=== PATIENT | female | born 1965 | race Caucasian/White ===

== ENCOUNTER → 2016-06-22 | Outpatient (REF) | payer OTHER | LOC: M LAB REF 16:44 | PROVIDERS: ATTEND Physician Assistant | DX: N39.0 Urinary tract infection, site not specified (principal) ==

== ENCOUNTER → 2018-07-03 | Outpatient (CLI) | payer OTHER ==
[2018-07-03 09:44] LABS: HEMATOCRIT 43.7 % (36.0-47.0); HEMOGLOBIN 15.1 g/dl (12.0-15.5); MEAN CORPUSCULAR HEMOGLOBIN 33.3 pg (27.0-33.0); MEAN CORPUSCULAR HGB CONC 34.6 g/dl (32.0-36.5); MEAN CORPUSCULAR VOLUME 96.3 fl (80.0-96.0); PLATELET COUNT, AUTOMATED 351 10^3/uL (150-450); RED BLOOD COUNT 4.54 10^6/uL (4.00-5.40); WHITE BLOOD COUNT 6.4 10^3/uL (4.0-10.0)
[2018-07-03 10:21] LABS: ALBUMIN 3.8 GM/DL (3.2-5.2); ALT/SGPT 31 U/L (12-78); BILIRUBIN,TOTAL 0.4 MG/DL (0.2-1.0); BLOOD UREA NITROGEN 8 MG/DL (7-18); CARBON DIOXIDE LEVEL 29 MEQ/L (21-32); CHLORIDE LEVEL 105 MEQ/L (98-107); CHOLESTEROL LEVEL 221 MG/DL (<200); CHOLESTEROL RISK RATIO 3.507 (<5); CREATININE FOR GFR 0.58 MG/DL (0.55-1.30); GLOMERULAR FILTRATION RATE > 60.0 (>51); GLUCOSE, FASTING 71 MG/DL (70-100); HDL CHOLESTEROL 63 MG/DL (>40); LDL CHOLESTEROL 95 MG/DL (<100); NON-HDL-C 158 MG/DL; POTASSIUM SERUM 3.9 MEQ/L (3.5-5.1); SODIUM LEVEL 140 MEQ/L (136-145); TOTAL PROTEIN 7.4 GM/DL (6.4-8.2); TRIGLYCERIDES LEVEL 315 MG/DL (<150)
[2018-07-03 10:22] LABS: TOTAL 25(OH) VITAMIN D 10.4 NG/ML (30.0-100.0)
[2018-07-03 10:38] LABS: HEMOGLOBIN A1c 5.1 %
== END ==
LOC: M LAB 09:06
PROVIDERS: ATTEND Family Medicine
DX: D64.9 Anemia, unspecified (principal); R53.83 Other fatigue; E03.9 Hypothyroidism, unspecified

== ENCOUNTER → 2018-07-06 | Outpatient (CLI) | payer OTHER ==
--- NOTE | 2018-07-07 13:35 | ECGEPIP ---
Stationary ECG Study [facility] Test Date: 2018-07-06 Pat Name: JAVY RIZVI Department: Room: - Gender: F Python Engineer: JANET : 1965 Requested By: Geraldine Medina Order Number: [id number] Reading MD: Avi Child Measurements Intervals [place] Rate: 68 P: 50 LA: 154 QRS: 53 QRSD: 92 T: 33 QT: 378 QTc: 402 Interpretive Statements Normal sinus rhythm Normal EKG Comparison tracing not on file Electronically Signed On 07-07-2018 13:34:57 EDT by Avi Child
== END ==
LOC: M EKG 13:21
PROVIDERS: ATTEND Family Medicine
DX: R00.2 Palpitations (principal)

== ENCOUNTER → 2018-11-12 | Outpatient (REF) | payer OTHER | LOC: M LAB REF 16:19 | PROVIDERS: ATTEND Physician Assistant | DX: N39.0 Urinary tract infection, site not specified (principal) ==

== ENCOUNTER → 2018-11-23 | Outpatient (REF) | payer OTHER | LOC: M LAB REF 09:08 | PROVIDERS: ATTEND Nurse Practitioner Family | DX: N39.0 Urinary tract infection, site not specified (principal) ==

== ENCOUNTER → 2018-12-02 | Outpatient (CLI) | payer OTHER ==
--- NOTE | 2018-12-02 14:45 | REP ---
HISTORY: Pain after trauma. COMPARISON: None. There is a distal clavicular fracture. The glenohumeral relationship is within normal limits. Electronically Signed by Tomas Wei DO 12/02/2018 04:02 P
--- NOTE | 2018-12-02 14:46 | REP ---
HISTORY: Pain after trauma. There is a fracture of the distal clavicle. Electronically Signed by Tomas Wei DO 12/02/2018 04:02 P
== END ==
LOC: M WUC 13:44
PROVIDERS: ATTEND Physician Assistant
DX: S40.012A Contusion of left shoulder, initial encounter (principal)

== ENCOUNTER → 2019-07-03 | Outpatient (REF) | payer OTHER ==
[2019-07-03 16:18] LABS: AMPHETAMINES URINE REFLEX NEGATIVE (NEGATIVE); BARBITURATES URINE REFLEX NEGATIVE (NEGATIVE); CANNABINOIDS URINE REFLEX NEGATIVE (NEGATIVE); COCAINE METABOLITE URINE REFLE NEGATIVE (NEGATIVE); METHADONE URINE REFLEX NEGATIVE (NEGATIVE); OPIATES URINE REFLEX NEGATIVE (NEGATIVE); PHENCYCLIDINE URINE REFLEX NEGATIVE (NEGATIVE)
[2019-07-03 16:31] LABS: BENZODIAZEPINES URINE REFLEX PENDING CONFIRMATION (NEGATIVE)
== END ==
LOC: M LABDRAW1 09:29
PROVIDERS: ATTEND Family Medicine
DX: Z79.899 Other long term (current) drug therapy (principal)
CPT/HCPCS: 36415; 80307; G0480

== ENCOUNTER → 2019-08-26 | Outpatient (CLI) | payer OTHER ==
[~2019-08-26] MED LIST: AMLO5TAB6 PO; BIOT1TAB PO; LOSA50TA88 PO; METO1TAB32 PO; OMEP10CASR PO; SIMV20TA22 PO; XANA0.5T3 PO
--- NOTE | 2019-08-26 14:48 | REP ---
DIGITAL DIAGNOSTIC BILATERAL MAMMOGRAPHY WITH CAD, 3D TOMOGRAPHY, AND FOCUSED RIGHT BREAST SONOGRAPHY: HISTORY: Palpable lump in the superomedial quadrant of the right breast with some pain. Prior lumpectomies superior medial quadrant of each breast. Both benign. No available prior mammography. MAMMOGRAPHIC FINDINGS: Breast parenchyma is heterogeneously dense in a pattern which may inhibit the sensitivity of mammography. The Volpara volumetric breast density category is: C. A skin marker is affixed to the skin at the site of the palpable lump projecting medially in the right breast at approximately 3-o'clock position. There is no evidence of mass adjacent to or in the region of the skin marker in the right breast. However, there is a spiculated mass lesion projecting in the upper outer quadrant of the right breast not related to the palpable abnormality. This measures approximately 1.9 cm in greatest diameter. There are radiating spiculations. No contour deformity or skin thickening is seen. There are microcalcifications within the lesion which is quite suspicious. The left breast shows heterogeneous breast tissue and some scattered calcifications. No suspicious abnormalities noted on the left mammographically. SONOGRAPHIC FINDINGS: The right breast is examined sonographically at the site of the palpable lump at 3-o'clock position as well as in the upper outer quadrant. Heterogeneous fibroglandular background echotexture is seen in the 3-o'clock position. No suspicious sonographic finding is seen at the site of the palpable lump. In the upper outer quadrant of the right breast, in the 10-o'clock position, there is a spiculated lesion with isoechoic and hypoechoic components and angular margins corresponding to the mammographic opacity. Radiating fibrotic structures are seen. No skin thickening is seen. Sonographically, the lesion measures 1.8 x 1.6 x 1.3 cm. IMPRESSION: BIRADS 5: BI-RADS/ACR category 5 mammogram. Highly Suggestive of Malignancy - appropriate action should be taken. BIRADS category 5 highly suspicious right breast imaging with a spiculated mass in the upper outer quadrant seen both mammographically and sonographically. Recommend ultrasound guided needle biopsy of the upper outer quadrant lesion in the right breast, marker clip placement, and postbiopsy mammography. This mammogram was interpreted with the aid of an FDA-approved computer-aided detection system. The patient states she had a clinical breast exam in August 2019. The patient letter being requested is M4. Dense This patient's estimated [facility] lifetime risk assessment for breast cancer is 22.0 %. Enhanced screening in the form of annual bilateral breast MRI scanning may be warranted.
== END ==
LOC: M WHC 12:27
PROVIDERS: ATTEND Nurse Practitioner Women's Health
DX: R92.8 Other abnormal and inconclusive findings on diagnostic imaging of breast (principal); Z98.890 Other specified postprocedural states
CPT/HCPCS: 76642; 77066; G0279

== ENCOUNTER → 2019-08-28 | Outpatient (CLI) | payer OTHER ==
[2019-08-28 12:50] VITALS: BP 130/72
--- NOTE | 2019-08-28 15:26 | REP ---
DIGITAL DIAGNOSTIC UNILATERAL RIGHT BREAST MAMMOGRAM WITH CAD: Two views. HISTORY: Marker clip placement views. Comparison mammography August 26, 2019. FINDINGS: True MLO and craniocaudad views of the right breast are obtained. These demonstrate the previously noted spiculated mass lesion projecting in the upper outer quadrant. The needle biopsy marker clip is along the posterior margin of the spiculated lesion. IMPRESSION: Marker clip in good position.
--- NOTE | 2019-08-28 15:27 | REP ---
FOCUSED RIGHT BREAST SONOGRAPHY: HISTORY: Sonographic guidance. Needle biopsy procedure. Comparison sonography August 26, 2019. FINDINGS: Sonographic guidance is provided to Dr. Sinclair who performed ultrasound-guided needle biopsy procedure right breast.
--- NOTE | 2019-08-28 15:28 | REP ---
FOCUSED LEFT BREAST SONOGRAPHY: HISTORY: Left breast mass 6-o'clock position, 1.5 cm from the nipple. FINDINGS: Scanning at the area of the palpable lump in the left breast at 6-o'clock position demonstrates a well defined hypoechoic to anechoic spherical lesion measuring 0.7 x 0.8 x 0.6 cm. It has a well defined back wall enhanced through transmission consistent with a complex cyst. There is no evidence of internal Doppler flow. IMPRESSION: Findings most compatible with slightly complex cyst 6-o'clock position left breast. BIRADS category 2 benign findings.
--- NOTE | 2019-08-28 15:29 | REP ---
SOFT TISSUE SONOGRAPHY RIGHT AXILLA: HISTORY: Tender palpable lymph node right axilla. Rule out adenopathy. SONOGRAPHIC FINDINGS: Scanning through the right axilla demonstrates two identifiable sonographically normal-appearing lymph nodes. These measure as follows: 1.0 x 0.9 x 1.2 cm and 0.5 x 0.4 x 0.7 cm. No sonographic evidence of adenopathy. IMPRESSION: BIRADS category 2 benign findings right axilla.
--- NOTE | 2019-09-01 21:10 | ROOPDOC ---
[facility] Report Of Operation Report of Operation DATE OF PROCEDURE: 08/28/19 PREPROCEDURE DIAGNOSES: Right breast mass. POSTPROCEDURE DIAGNOSES: Right breast mass. PROCEDURE: Ultrasound-guided biopsy of right breast mass and clip placement. SURGEON: Rosalba Sharma INSPECTOR BALL POINTS: ANESTHESIA: Local anesthetic was used. ESTIMATED BLOOD LOSS: Approximately 1 mL. COMPLICATIONS: None. REMARKS: Postbiopsy clip is seen on mammographically in expected location. DESCRIPTION OF PROCEDURE: Lidocaine 1% LOT [id number] Expiration 09/2022 Sodium Bicarbonate 8.4% LOT [id number] Expiration 09/2020 Hydromark clip LOT [id number] Expiration 02/2022 SHAPE 4 Bx device: BARD [id number] x10 cm LOT [id number] Expiration 05/2022 Informed consent was obtained. The most common risk and possible complications including bleeding, hematoma, bruising, infection, injury to surrounding structures were explained to the patient and she expressed understanding. Patient was placed on the bed in the supine position. Appropriate time out was done stating patients name, date of , and the procedure to be performed. The right breast was prepped and draped in the usual fashion. The ultrasound was used to confirm the location of the lesion in the right breast at 10:00 3 centimeters from the nipple. Plain Lidocaine 1% and 8.4% sodium bicarbonate 10:1 mix was used to anesthetize the skin, the biopsy site and tissues along the anticipated biopsy tract. Small skin incision was made with blade number 11. BARD Marquee 14G cannula with introducer ([id number]) was inserted through the incision and advanced under the u ltrasound guidance to position immediately adjacent to the lesion. Next, the introducer was removed and BARD Marquee 14G biopsy device was places in the cannula. Pre-biopsy imaging, and post-biopsy imaging were captured. Five good core biopsies were taken at various levels of the lesion. Specimen was placed in formaldehyde, labeled with appropriate biopsy site and patients name, and sent to pathology for evaluation. Next, the biopsy device was withdrawn and a clip introducer was inserted into the biopsy site via the cannula. The Hydromark clip was deployed under direct vision. Post-clip placement image was captured. Manual pressure over the biopsy cavity and tract was held after the clip introducer was withdrawn. No bleeding was noted upon removal of the pressure. Post-biopsy mammogram of the right breast was obtained and showed clip in expected position. Postprocedural dressing was placed. Patient tolerated procedure well. Discharge instructions were discussed with the patient and she expressed understanding. ROSALBA SHARMA DO September 01, 2019 21:03
== END ==
LOC: M WHCPRO 11:34
PROVIDERS: ATTEND Surgery
DX: C50.411 Malignant neoplasm of upper-outer quadrant of right female breast (principal)

== ENCOUNTER → 2019-08-28 | Outpatient (CLI) | payer OTHER | LOC: M PLALAB 12:59 | PROVIDERS: ATTEND Surgery | DX: Z80.3 Family history of malignant neoplasm of breast (principal) ==

== ENCOUNTER → 2019-09-06 | Outpatient (CLI) | payer OTHER ==
[~2019-09-06] MED LIST changes: +PROHANCE 279.3MG/ML 15ML VIAL As Ordered ONE; +ULTR50TA8 PO; +VITA50005 PO
--- NOTE | 2019-09-07 07:44 | REP ---
BILATERAL BREAST MRI STUDY WITHOUT AND WITH IV GADOLINIUM: HISTORY: Malignant neoplasm right breast. Comparison mammography and sonography August 26, 2019. Comparison breast imaging August 28, 2019. The patient status post needle biopsy right breast on August 28, 2019 positive for invasive ductal carcinoma. TECHNIQUE: Three Stacy MRI imaging was performed with a dedicated breast coil. Axial, coronal, and sagittal T1 and T2-weighted scans were obtained with and without fat saturation in the usual fashion. The study includes dynamically acquired post gadolinium enhanced imaging subtraction imaging. Maximal intensity projection and multiplanar re-formation imaging is included as well. The study was interpreted with the aid of [employer] ImageD, an FDA approved computer-aided detection (CAD) software program, on a dedicated breast MRI work station. The gadolinium enhancement dose is 11 mL of intravenous ProHance. FINDINGS: There is a moderate to marked amount of fibroglandular tissue bilaterally corresponding with the dense parenchyma seen mammographically. There is mild to moderate background parenchymal enhancement. There are multiple subcentimeter cysts in the left breast. There are two or three subcentimeter cysts in the inferomedial quadrant of the right breast. Multiple tiny subcentimeter cysts are noted in the left and right lobe of the liver incidentally. There is no evidence of axillary lymphadenopathy on either side. No internal mammary lymphadenopathy is seen. The biopsy-proven carcinoma is seen in the right breast laterally, just above the plane of the nipple at approximately 9-10-o'clock position. Its MR dimensions are 1.4 x 1.7 x 1.5 cm. It has spiculated margins with somewhat elongate spiculations extending from the mass circumferentially. It is 3.5 cm from the nipple and 1.4 cm from the nearest overlying skin laterally. No skin changes are appreciated. A HydroMARK biopsy marker clip device is seen through the superior and posterior margin of the lesion. The lesion demonstrates somewhat heterogeneous enhancement with predominately washout kinetics. No other suspicious area of morphologic abnormality or contrast enhancement is seen in the right breast. Normal background parenchymal enhancement is seen in the left breast. No suspicious morphologic abnormality or area of contrast enhancement is seen in the left breast. IMPRESSION: BIRADS category 6 known right breast malignancy. 1.7 centimeter spiculated mass in the right breast containing the needle biopsy marker clip. No other suspicious abnormality. Subcentimeter cysts are visible bilaterally. There are several tiny liver cyst noted incidentally. Electronically Signed by Justin Roberts MD 09/09/2019 09:17 A
== END ==
LOC: M RAD 14:35
PROVIDERS: ATTEND Surgery
DX: C50.911 Malignant neoplasm of unspecified site of right female breast (principal); K76.9 Liver disease, unspecified
CPT/HCPCS: A9576; C8908

== ENCOUNTER → 2019-09-07 | Outpatient (CLI) | payer OTHER ==
[~2019-09-07] MED LIST changes: -PROHANCE 279.3MG/ML 15ML VIAL As Ordered ONE
[2019-09-07 09:57] LABS: HEMATOCRIT 37.6 % (36.0-47.0); HEMOGLOBIN 12.7 g/dl (12.0-15.5); MEAN CORPUSCULAR HEMOGLOBIN 31.7 pg (27.0-33.0); MEAN CORPUSCULAR HGB CONC 33.8 g/dl (32.0-36.5); MEAN CORPUSCULAR VOLUME 93.8 fl (80.0-96.0); PLATELET COUNT, AUTOMATED 299 10^3/uL (150-450); RED BLOOD COUNT 4.01 10^6/uL (4.00-5.40); WHITE BLOOD COUNT 4.2 10^3/uL (4.0-10.0)
[2019-09-07 10:11] LABS: INR 1.11
--- NOTE | 2019-09-07 10:14 | REP ---
Clinical: Preoperative assessment . Comparison: None . Technique: PA and lateral. Findings: The mediastinum and cardiac silhouette are normal. The lung baird are clear and without acute consolidation, effusion, or pneumothorax. The skeletal structures are intact and normal. Impression: 1. No acute cardiopulmonary process. Electronically Signed by Gilberto Joel MD 09/07/2019 10:05 A
[2019-09-07 10:29] LABS: ALBUMIN 3.9 GM/DL (3.2-5.2); ALT/SGPT 62 U/L (12-78); BILIRUBIN,TOTAL 0.4 MG/DL (0.2-1.0); BLOOD UREA NITROGEN 6 MG/DL (7-18); CALCIUM LEVEL 8.4 MG/DL (8.5-10.1); CARBON DIOXIDE LEVEL 27 MEQ/L (21-32); CHLORIDE LEVEL 101 MEQ/L (98-107); CHOLESTEROL LEVEL 183 MG/DL (<200); CHOLESTEROL RISK RATIO 2.506 (<5); CREATININE FOR GFR 0.56 MG/DL (0.55-1.30); GLOMERULAR FILTRATION RATE > 60.0 (>51); GLUCOSE, FASTING 69 MG/DL (70-100); HDL CHOLESTEROL 73 MG/DL (>40); LDL CHOLESTEROL 64 MG/DL (<100); NON-HDL-C 110 MG/DL; POTASSIUM SERUM 3.9 MEQ/L (3.5-5.1); SODIUM LEVEL 135 MEQ/L (136-145); TOTAL PROTEIN 7.7 GM/DL (6.4-8.2); TRIGLYCERIDES LEVEL 230 MG/DL (<150)
--- NOTE | 2019-09-08 01:01 | ECGEPIP ---
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
== END ==
LOC: M LAB 09:18
PROVIDERS: ATTEND Family Medicine
DX: Z01.818 Encounter for other preprocedural examination (principal); I10 Essential (primary) hypertension

== ENCOUNTER → 2019-09-14 | Outpatient (CLI) | payer OTHER | LOC: M LABSMTC 08:11 | PROVIDERS: ATTEND Anesthesiology | DX: Z01.818 Encounter for other preprocedural examination (principal); Z11.59 Encounter for screening for other viral diseases ==

== ENCOUNTER 2019-09-17 08:01 | Day surgery (SDC) | payer OTHER ==
[~2019-09-17] VITALS: Ht 160 cm; Wt 58.0 kg
[~2019-09-17 08:01] MED LIST changes: -ULTR50TA8 PO
[2019-09-17] MEDS ORDERED: propofoL 200 MG/20 ML VIAL As Ordered ONE (08:37)
[2019-09-17] MEDS ORDERED: LIDOCAINE 2% 100MG/5ML SDV (FOR ANES.) As Ordered ONE (08:37)
[2019-09-17] MEDS ORDERED: SUCCINYLCHOLINE 100 MG/5 ML SYRINGE (J0330) As Ordered ONE (08:37)
[2019-09-17] MEDS ORDERED: fentaNYL 250 MCG/5 ML INJECTION (J3010) As Ordered ONE (08:38)
[2019-09-17] MEDS ORDERED: MIDAZOLAM INJ 2MG/2ML VIAL (J2250 PER 1MG) As Ordered ONE (08:38)
[2019-09-17] MEDS ORDERED: HEPARIN SOD (PORCINE) 5000UNITS/ML VIAL (J1644 PER 1000UNITS) SQ ONE (08:45)
[2019-09-17] MEDS ORDERED: CLINDAMYCIN 900 MG in IV 1 EA IV ONE (08:45)
[2019-09-17] MEDS ORDERED: LR 1,000 ML IV ONE (08:45)
[2019-09-17] MEDS ORDERED: LIDOCAINE 1% SDV 30ML VIAL As Ordered ONE (12:19)
[2019-09-17] MEDS ORDERED: BUPIVACAINE HCL 0.25% 30ML VIAL As Ordered ONE (12:19)
[2019-09-17] MEDS ORDERED: METHYLENE BLUE 0.5% (5MG/ML) 10 ML AMP (PROVAYBLUE)(Q9968 PER 1MG) As Ordered ONE (12:41)
[2019-09-17] MEDS ORDERED: ROCURONIUM BROMIDE 50 MG/5 ML VIAL As Ordered ONE (12:54)
[2019-09-17] MEDS ORDERED: ePHEDrine SULFATE 25 MG/5 ML(5MG/ML) SYRINGE As Ordered ONE (13:12)
[2019-09-17] MEDS ORDERED: PHENYLephrine HCL 500 MCG/5 ML (100MCG/ML) SYRINGE (J2370) As Ordered ONE (13:40)
[2019-09-17] MEDS ORDERED: GLYCOPYRROLATE INJ 0.2 MG/ML 2 ML VIAL As Ordered ONE (13:48)
[2019-09-17] MEDS ORDERED: ACETAMINOPHEN 1000MG 100ML IV BTL (OFIRMEV) (J0131 PER 10MG) As Ordered ONE (14:01)
[2019-09-17] MEDS ORDERED: ONDANSETRON 4MG/2ML VIAL As Ordered ONE (14:01)
[2019-09-17] MEDS ORDERED: diphenhydrAMINE 50MG/ML VIAL (J1200) As Ordered ONE (14:02)
[2019-09-17] MEDS ORDERED: KETOROLAC 60 MG/2 ML VIAL As Ordered ONE (14:02)
[2019-09-17] MEDS ORDERED: METOCLOPRAMIDE INJ 10MG/2ML VIAL (J2765 PER 1) As Ordered ONE (14:02)
[2019-09-17] MEDS ORDERED: DESFLURANE 240 ML INHALANT As Ordered ONE (15:25)
--- NOTE | 2019-09-17 16:45 | REP ---
RIGHT BREAST LYMPHOSCINTIGRAPHY The procedure was performed under the direct supervision of Dr. Lockett. The risks and benefits of the procedure were explained to the patient and informed consent was obtained. Using topical anesthetic and sterile technique 1.021 mCi of technetium 99 filtered sulfur colloid was injected subdermally and eight fractionated periareolar injections. Images obtained 1 hour after injection show uptake in the right breast tumor. Impression: Right breast lymphoscintigraphy. There is uptake seen in the right breast tumor. Electronically Signed by CHRISTINA Price 09/17/2019 04:23 P Electronically Signed by Jamar Lockett MD 09/17/2019 04:37 P
[2019-09-17] MEDS ORDERED: KETOROLAC 30 MG/ML 1ML VIAL IV PRN (16:56)
[2019-09-17] MEDS ORDERED: HYDROmorphone HCL 2 MG/ML 1ML VIAL (J1170) As Ordered ONE (16:59)
--- NOTE | 2019-09-17 17:34 | REP ---
RIGHT BREAST SONOGRAPHY: HISTORY: Right breast cancer. FINDINGS: Sonographic guidance is provided to Dr. Sinclair who performed needle wire localization procedure. Electronically Signed by Justin Roberts MD 09/17/2019 06:02 P
[2019-09-17] MEDS ORDERED: ULTR50TA8 PO (17:43)
[2019-09-17] MEDS ORDERED: oxyCODONE 5MG TAB PO PRN (17:45)
[2019-09-17] MEDS ORDERED: LR 1,000 ML IV SCH (17:45)
[2019-09-17] MEDS ORDERED: ONDANSETRON 4MG/2ML VIAL IV PRN (17:45)
[2019-09-17] MEDS ORDERED: fentaNYL 100 MCG/2 ML INJECTION (J3010) IV PRN (17:45)
[2019-09-17] MEDS ORDERED: HYDROMORPHONE HCL 0.5 MG/ 0.5 ML SYRINGE (J1170 PER 1) IV PRN (17:45)
[2019-09-17 19:25] VITALS: BP 118/56
--- NOTE | 2019-09-18 23:06 | ROOPDOC ---
[facility] Report Of Operation Report of Operation DATE OF PROCEDURE: 09/17/19 PREPROCEDURE DIAGNOSES: Right breast cancer POSTPROCEDURE DIAGNOSES: Right breast cancer PROCEDURE: Right breast lumpectomy and right sentinel lymph node biopsy SURGEON: Rosalba Sharma METAL FLOORING INSTALLER: ANESTHESIA: general anesthesia ESTIMATED BLOOD LOSS: Approximately 25 mL. COMPLICATIONS: none REMARKS: clip is centrally located in the specimen DESCRIPTION OF PROCEDURE: INDICATIONS: Ms. Pittman is a 53-year-old woman who was found to have a suspicious right breast mass on diagnostic mammogram. The mass was biopsied with ultrasound guidance and Hydromark clip was placed. 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 [place]+, HER2 negative. Patient opted for breast conservative surgery with sentinel lymph node biopsy on the right breast. She was medically cleared for surgery by her primary care doctor. Risks and possible complications of surgical procedure including bleeding, infection and injury to surrounding structures were explained to the patient and she wished to proceed. Consent was signed. My initials were placed on the operative site. Subcutaneous injection of 5000 units of heparin was done in Preop. The injection of radioactive tracer was done in radiology department preoperatively and did not show any drainage into the axilla. Lymphoscintigraphy imaging was reviewed in preop and radiology was called to confirm the findings. DETAILS: Patient was taken to the operating room and placed on the operating room table. A sign in was called stating patients name, date of and the procedure to be done. Preoperative antibiotics were infused. Smooth induction of general anesthesia was done. Patients hands were extended on arm rests. Care was taken not to over extend the arms. Appropriate time out was done and patients name, date of , and the procedure to be done were confirmed. Procedure was started with an injection of blue dye (methylene blue) into subareolar plexus due to negative lymphoscintigraphy and poor Neoprobe signal in the right axilla. The breast was massaged for 5 minutes. Next, we proceeded with right breast intraop wire localization. Left breast was cleaned by me. Intraoperative ultrasound was used to confirm location of the Hydromark clip. Location of the clip was marked on the skin as well. 21 G [employer] Breast Lesion Localization Needle was used to place 25 cm wire through the lesion. The wire was placed through the clip and the end of the wire was passed a centimeter deep. The images were captured confirming adequate placement of the localizing wire. Train Control Technician assisted with the wire placement. Next, patients left breast and axilla were prepped and draped in the usual fashion. Care was taken not to displace the wire. Appropriate time out was done again prior to next part of the procedure. Patients name, date of , and the procedure to be done were confirmed. We proceeded with sentinel lymph node biopsy. Neoprobe signal was poor. Local anesthetic using 1% lidocaine and 0.25 % Marcaine 50/50 mix was injected at the planned incision site located at the lower hair bearing area in the right armpit. An incision was made with scalpel number 15. The sharp and blunt dissection was continued through the subcutaneous adipose tissue. Clavipectoral fascia was opened. Neoprobe signal was still poor. Attempt was made to seek blue lymphatic vessels. A slight blue node was noted upon exploration of axilla. This node was also palpable. There was no neoprobe signal in this node. This node was resected and sent to pathology as a right axillary lymph node #1 blue/palpab le. Adjacent to that node there was another palpable lymph node which was also taken and sent to pathology as a right axillary lymph node #2/ palpable. Upon deeper exploration a third palpable node was noted, excised and sent to pathology as right axillary lymph node #3/ palpable. At this time axilla was left open, and reexplored after the main lumpectomy specimen was removed and which time a small blue node was found whit high signal was found and resected. The ex-vivo 10 second count was 167. This was sent to pathology as right axillary node #4/ hot/blue. No additional blue, palpable or high radioactive signal nodes were identified. The 10 second count of the background was 15. Adequate hemostasis was assured. Additional local anesthetic was injected into surrounding tissues. Wound was irrigated. Clavipectoral fascia was closed with 3-0 Vicryl interrupted suture. Dermal layer was closed at the end of the case with 3-0 Monocryl and skin was closed with 4-0 Monocryl. Surgical glue was applied to the incision at the end of the procedure. Next, our attention was turned toward the right. Local anesthetic using 1% lidocaine and 0.25 % Marcaine 50/50 mix was injected at the site of planned periareolar incision. The incision was made with the scalpel. Subcutaneous skin flaps were raised and the guide wire was carefully pulled into the wound. Dissection was carries along the wire until the previously marked on the skin area of target lesion location was encountered. At this point, wider excision of the tissue surrounding the wire was done. The Hydromark clip was identified in the tissue with intraoperative hockey stick ultrasound probe. The end of the wire was identified with palpation. The lumpectomy specimen was carefully removed from the breast keeping its proper orientation and moved to the back table where margins were marked with the surgical inking kit following the standard colors recommendations. Specimen was then placed on the grid and placed in [employer] Specimen Imaging System. The image revealed the centrally located clip, the wire and mass in the specimen. The specimen was labeled with patients name and right lumpectomy and sent to pathology. At this time radiology department was called to aid with evaluation of excised specimen. I spoke to Dr Lockett. No additional excision was recommended. Next, five additional margins were taken: deep, inferior, superior, medial, and lateral. Anterior margin was not taken as the dissection was carried along the dermal layer. All new margins, defined as margin farthest away from lumpectomy cavity, were marked with black ink. Each margin was sent as a separate specimen with appropriate labeling. Wound was thoroughly irrigated. Adequate hemostasis was assured. Additional local anesthetic was injected into surrounding tissues. Clips were placed to bill the cavity. Due to significant tissue defect, surrounding breast issue was undermined from pectoralis muscle and from dermis to allow mobilization of the tissue and closure of the defect. space was approximated with 3-0 Vicryl. The dermis was closed with 3-0 Monocryl and skin was closed with 4-0 Monocryl. Surgical glue was placed over the incision. Patient emerged from the anesthesia without any problems. Fluffs were placed over the operative site and patients chest was wrapped snuggly in the VINAYAK wrap. Sponge and instrument counts were done and were correct. Patient tolerated procedure well and was taken to recovery unit in stable condition. ROSALBA SHARMA DO September 18, 2019 22:34
--- NOTE | 2019-09-19 07:06 | REP ---
SPECIMEN RADIOGRAPH: A specimen radiograph is performed following lumpectomy of the right breast. Localizing wire is seen centrally. The spiculated mass and biopsy clip are seen centrally within the specimen. Electronically Signed by Jamar Lockett MD 09/19/2019 12:39 P
== END 2019-09-17 19:35 | disposition home or self-care (01) ==
LOC: M SDC 08:01
PROVIDERS: ATTEND Surgery
DX: C50.911 Malignant neoplasm of unspecified site of right female breast (principal); I10 Essential (primary) hypertension; E78.00 Pure hypercholesterolemia, unspecified; K21.9 Gastro-esophageal reflux disease without esophagitis; F43.10 Post-traumatic stress disorder, unspecified; F41.9 Anxiety disorder, unspecified; Z87.891 Personal history of nicotine dependence; Z79.899 Other long term (current) drug therapy; Z88.0 Allergy status to penicillin; Z88.5 Allergy status to narcotic agent
CPT/HCPCS: 19125; 36415; 38525; 76942; 78195; 81025; 86850; 86900; 86901; 88305; 88307; A9541; J0131; J0330; J1170; J1200; J1644; J1885; J2250; J2405; J2765; J3010; Q9968

== ENCOUNTER → 2019-10-17 | Outpatient (CLI) | payer OTHER ==
[~2019-10-17] MED LIST changes: +ANAS1TAB2 PO; +ULTR50TA8 PO
--- NOTE | 2019-10-17 12:45 | RADONC ---
DATE OF CONSULTATION: 10/17/2019 CHIEF COMPLAINT: Right breast CA. HISTORY OF PRESENT ILLNESS: Ms. Pittman is a 54-year-old woman. She had noted a painful lump in the right breast on August 24, 2019, when her friends gave her hug. The lump was located at the medial aspect of her right breast at the site of the previous excisional biopsy scar. The patient was seen by her finishing machine operator however, finishing machine operator was not able to appreciate the lump at the site where she noted. Digital diagnostic bilateral mammography with the CAD 3D tomography on August 26, 2019, and it showed spiculated mass lesion in the upper outer quadrant of the right breast not related to the palpable abnormalities. It measured approximately 1.9 cm in greatest diameter, and sonography was performed at the site of a palpable lump at the 3 o'clock position, as well as in the upper outer quadrant. There was no suspicious finding at the site of palpable lump within the upper outer quadrant of the right breast. In the 10 o'clock position, there was a spiculated lesion with isoechoic and hypoechoic component and irregular angular margins corresponding to the mammography opacity. The lesion measured 1.8 x 1.6 x 1.3 cm. Bilateral breast MRI was performed on September 06, 2019, and it also showed 1.4 x 1.7 x 1.3 cm spiculated mass in the right breast. There were no other suspicious abnormalities noted. On September 17, 2019, the patient underwent right lumpectomy and sentinel node biopsies. The lumpectomy specimen showed infiltrating ductal carcinoma with extensive calcification, grade 1 of 3, and DCIS nuclear grade 1/3.ER,GA were positive 90% Her-2 negative three sentinel nodes were negative. Their margins were negative, and extra margins obtained, they were all negative. ONCOTYPE DX recurrent score : 15. She is recovering from the surgery. PAST MEDICAL HISTORY: Includes hypertension, hypercholesterol, PTSD, and she has history of bilateral excisional biopsy of the breast in 2004. 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 FAMILY HISTORY: She has a significant family history of breast cancer diagnosed in sister in early 40s, maternal aunt in 50s, and other maternal aunt in her 60s and 70s. She has no significant family history of ovarian cancer. CURRENT MEDICATIONS: - biotin 10 mg tablet once a day - losartan potassium 50 mg tablet once a day - omeprazole 20 mg daily - metoprolol succinate 25 mg tablet once daily - Xanax 0.5 mg tablet daily - taking amlodipine besylate 5 mg once daily - simvastatin 20 mg tablet once daily ALLERGIES: CODEINE SULFATE caused dizziness and head spinning, and the PENICILLIN caused hives, vomiting, and abdominal pain. SOCIAL HISTORY: She quit smoking about a year ago. She does not drink regularly. However, she at times drinks and drinks heavy. SYSTEMIC REVIEW: General and constitutional: She denies any fever, headache, weight loss. HEENT: Denies eye/visual problem, auditory problem. Respiratory/pulmonary: Denies short of breath, cough, hemoptysis. Cardiovascular: Denies palpitation or chest pain. Gastrointestinal: Denies nausea, vomiting, abdominal pain, diarrhea, constipation. Genitourinary: Denies urinary frequency, dysuria, hematuria, incontinence. Musculoskeletal: Denies any bone pain or weakness. Skin: No rashes. Neurological: Denies headache, memory loss, and sensory deficit. Psychiatric: The patient said she has anxiety and takes Xanax. ECOG performance status: 0. PHYSICAL EXAMINATION: General examination revealed well developed and nourished female not in apparent distress. The patient was alert and oriented. HEENT: Normocephalic, atraumatic. Neck: Supple. No cervical lymph node, cervical, axillary lymph node palpable. There is no limitation of movement of the arm. No swelling of the arm. Cardiovascular: Regular rhythm and rate. Respiratory: Clear to auscultation. Abdomen: Is soft, nontender, nondistended without any palpable mass, organomegaly. Genitourinary: Not examined. Breasts: The surgical lumpectomy scar and axillary scar well healed. There is slight tenderness over the lumpectomy scar in the axilla. There are no lumps in either breast. There are no skin lesions. Extremities: Without swelling, cyanosis. Neurological: Strength and sensation grossly intact. Psychiatric: Mood and affect appropriate. PATHOLOGICAL FINDINGS: As mentioned in HPI. RADIOLOGICAL FINDINGS: Mentioned in HPI. ICD-10 CODE:C50.411 STAGING:Stage I, [id number]. ASSESSMENT: Ms. Pittman is a 54-year-old postmenopausal woman, presented with palpable lump in the right breast. She was seen by finishing machine operator who was not able to appreciate the lesion, and she had bilateral mammography and ultrasound on August 26, 2019, which reported highly suspicious right breast spiculated mass in the upper outer quadrant in both mammography and sonography. Biopsy of the lesion was positive for invasive ductal carcinoma grade 1 of 3. She had followup MRI of bilateral breasts, which again demonstrated 1.7 cm spiculated mass in the right breast. She underwent lumpectomy and sentinel biopsy on September 17, 2019, and pathology again revealed infiltrating ductal carcinoma, and margins were clear, and three sentinel lymph nodes were negative, ER, PRpositive HER-2 negative, Oncotype DX recurrent score was15. RECOMMENDATIONS: I have discussed nature of the disease and options of treatment. I explained she has stage I breast cancer, ER/GA positive, HER2/viktor negative, Oncotype DX 15. Mastectomy and lumpectomy followed by radiation therapy are is equally effective and standard of care as local treatment. I discussed fractionation of radiatin therapy and recommend hypofractionation dose of 4240 cGy in 265 cGy daily fractions followed by additional 1000 cGy as a boost. I explained the procedures and possible side effect associated with the radiation therapy, and I have given her chance to ask questions and concerns, and they were answered to her satisfaction. MTDD
== END ==
LOC: M ONCR 09:04
PROVIDERS: ATTEND Radiology Radiation Oncology
DX: C50.911 Malignant neoplasm of unspecified site of right female breast (principal)

== ENCOUNTER 2019-10-21 13:58 | Outpatient (RCR) | payer OTHER ==
[~2019-10-21 13:58] MED LIST changes: -ANAS1TAB2 PO
== END 2019-10-22 ==
LOC: M ONCR 13:58
PROVIDERS: ATTEND Radiology Radiation Oncology
DX: C50.411 Malignant neoplasm of upper-outer quadrant of right female breast (principal)

== ENCOUNTER → 2019-12-23 | Outpatient (CLI) | payer OTHER ==
[~2019-12-23] MED LIST changes: +AMLO1TAB24 PO; -AMLO5TAB6 PO; +ANAS1TAB2 PO; +CALC1TAB63 PO; +GLUC500C37 PO; +TAMO20TA8 PO; +TRAM50TA2 PO
--- NOTE | 2020-01-14 15:33 | DEXA ---
AP SPINE L1 - L4 1.584 3.1 4.0 LT FEMUR TOTAL 1.148 1.1 1.8 LT NECK 1.198 1.2 2.2 RT FEMUR TOTAL 1.103 0.8 1.4 RT NECK TOTAL BODY TOTAL OTHER COMMENTS: Normal bone densitometry of the spine and hips. FOLLOW-UP: Recommendation for the next bone density exam: 5 years. RADHA
== END ==
LOC: M WHC 12:26
PROVIDERS: ATTEND Internal Medicine Hematology & Oncology
DX: Z13.820 Encounter for screening for osteoporosis (principal)

== ENCOUNTER → 2020-04-02 | Outpatient (CLI) | payer OTHER ==
[2020-04-02 14:08] LABS: BLOOD UREA NITROGEN 6 MG/DL (7-18); CALCIUM LEVEL 9.1 MG/DL (8.5-10.1); CARBON DIOXIDE LEVEL 28 MEQ/L (21-32); CHLORIDE LEVEL 102 MEQ/L (98-107); CREATININE FOR GFR 0.62 MG/DL (0.55-1.30); GLOMERULAR FILTRATION RATE > 60.0 (>51); GLUCOSE, FASTING 68 MG/DL (70-100); POTASSIUM SERUM 3.7 MEQ/L (3.5-5.1); SODIUM LEVEL 136 MEQ/L (136-145)
== END ==
LOC: M PLALAB 09:26
PROVIDERS: ATTEND Family Medicine
DX: Z79.899 Other long term (current) drug therapy (principal)

== ENCOUNTER → 2020-06-15 | Outpatient (CLI) | payer OTHER ==
[2020-06-15 14:08] LABS: HEMATOCRIT 37.1 % (36.0-47.0); HEMOGLOBIN 12.6 g/dl (12.0-15.5); MEAN CORPUSCULAR VOLUME 94.2 fl (80.0-96.0); PLATELET COUNT, AUTOMATED 313 10^3/uL (150-450); RED BLOOD COUNT 3.94 10^6/uL (4.00-5.40); WHITE BLOOD COUNT 4.1 10^3/uL (4.0-10.0)
[2020-06-15 14:30] LABS: HEMOGLOBIN A1c 4.8 %
[2020-06-15 15:01] LABS: ALT/SGPT 61 U/L (12-78); BILIRUBIN,TOTAL 0.4 MG/DL (0.2-1.0); BLOOD UREA NITROGEN 8 MG/DL (7-18); CALCIUM LEVEL 9.4 MG/DL (8.5-10.1); CARBON DIOXIDE LEVEL 28 MEQ/L (21-32); CHLORIDE LEVEL 96 MEQ/L (98-107); CHOLESTEROL LEVEL 177 MG/DL (<200); CHOLESTEROL RISK RATIO 1.882 (<5); CREATININE FOR GFR 0.81 MG/DL (0.55-1.30); GLOMERULAR FILTRATION RATE > 60.0 (>51); GLUCOSE, FASTING 68 MG/DL (70-100); HDL CHOLESTEROL 94 MG/DL (>40); LDL CHOLESTEROL 55 MG/DL (<100); NON-HDL-C 83 MG/DL; POTASSIUM SERUM 4.5 MEQ/L (3.5-5.1); SODIUM LEVEL 133 MEQ/L (136-145); TOTAL 25(OH) VITAMIN D 108.9 NG/ML (30.0-100.0); TOTAL PROTEIN 7.7 GM/DL (6.4-8.2); TRIGLYCERIDES LEVEL 139 MG/DL (<150)
== END ==
LOC: M PLALAB 10:24
PROVIDERS: ATTEND Family Medicine
DX: E03.9 Hypothyroidism, unspecified (principal); R53.83 Other fatigue; D64.9 Anemia, unspecified

== ENCOUNTER → 2020-08-28 | Outpatient (CLI) | payer OTHER ==
--- NOTE | 2020-08-28 12:57 | REP ---
INDICATION: EULA DIAG MAMMO/HIGH RISK/NEOPLASM OF R BREAST. COMPARISON: Multiple TECHNIQUE: Bilateral CC and MLO) view(s) were taken using both 2D and 3D modalities along with spot compression views of the right breast in the CC and MLO projections upper outer quadrant over previous surgical site. FINDINGS: Once again, dense heterogenous nodular fibroglandular elements are seen bilaterally to such significant degree that the sensitivity of the mammogram a detecting cancers decreased. There is postprocedural internal architectural distortion right breast upper outer quadrant. Multiple surgical clips are in place. In the right breast upper outer a pleomorphic group of calcifications are now identified varying in size, shape, radiographic density. No mammograms older than 08/26/2019 are available for comparison. No kris soft tissue densities are present. There is postprocedural right breast internal architectural distortion in the upper outer quadrant. No suspicious features or significant changes are seen in the left breast. Stable benign appearing calcifications are again seen in the left breast. IMPRESSION: BIRADS/ACR category 4 mammogram. Right breast biopsy recommended due to calcifications as described above. Volpara C breast density This patient's Tyrer-Cuzick lifetime breast cancer risk assessment score is N\A%. This mammogram was interpreted with the aid of an FDA-approved computer-aided detection system. The patient states she had a clinical breast exam in 1 year ago. The patient letter being requested is M4 RECOMMENDATION: As above <Electronically signed by Tomas Wei > 08/28/20 [id number]
== END ==
LOC: M WHC 11:08
PROVIDERS: ATTEND Surgery
DX: Z12.39 Encounter for other screening for malignant neoplasm of breast (principal); R92.1 Mammographic calcification found on diagnostic imaging of breast; C50.911 Malignant neoplasm of unspecified site of right female breast
CPT/HCPCS: 77066; G0279

== ENCOUNTER → 2022-01-13 | Outpatient (CLI) | payer OTHER ==
[~2022-01-13] MED LIST changes: +ERGO500029 PO; +LOSA50TA28 PO; -LOSA50TA88 PO; -VITA50005 PO
[2022-01-13 13:52] LABS: HEMATOCRIT 39.4 % (36.0-47.0); HEMOGLOBIN 13.5 g/dl (12.0-15.5); MEAN CORPUSCULAR HEMOGLOBIN 32.5 pg (27.0-33.0); MEAN CORPUSCULAR HGB CONC 34.3 g/dl (32.0-36.5); MEAN CORPUSCULAR VOLUME 94.9 fl (80.0-96.0); PLATELET COUNT, AUTOMATED 328 10^3/uL (150-450); RED BLOOD COUNT 4.15 10^6/uL (4.00-5.40)
[2022-01-13 14:47] LABS: ALBUMIN 3.9 GM/DL (3.2-5.2); ALT/SGPT 37 U/L (12-78); BILIRUBIN,TOTAL 0.4 MG/DL (0.2-1.0); BLOOD UREA NITROGEN 8 MG/DL (7-18); CALCIUM LEVEL 9.5 MG/DL (8.5-10.1); CARBON DIOXIDE LEVEL 28 MEQ/L (21-32); CHLORIDE LEVEL 101 MEQ/L (98-107); CHOLESTEROL LEVEL 223 MG/DL (<200); CHOLESTEROL RISK RATIO 2.896 (<5); CREATININE FOR GFR 0.58 MG/DL (0.55-1.30); GLOMERULAR FILTRATION RATE > 60.0 (>51); GLUCOSE, FASTING 81 MG/DL (70-100); HDL CHOLESTEROL 77 MG/DL (>40); IRON (FE) 118 UG/DL (50-170); LDL CHOLESTEROL 96 MG/DL (<100); MAGNESIUM LEVEL 1.9 MG/DL (1.8-2.4); NON-HDL-C 146 MG/DL; PERCENT SATURATION 35.2 % (13.2-45.0); POTASSIUM SERUM 4.1 MEQ/L (3.5-5.1); SODIUM LEVEL 134 MEQ/L (136-145); TOTAL IRON BINDING CAPACITY 335 UG/DL (250-450); TOTAL PROTEIN 8.2 GM/DL (6.4-8.2); TRIGLYCERIDES LEVEL 251 MG/DL (<150)
[2022-01-13 14:58] LABS: HEMOGLOBIN A1c 5.2 %
[2022-01-13 15:25] LABS: TOTAL 25(OH) VITAMIN D 54.2 NG/ML (30.0-100.0); VITAMIN B12 LEVEL 434 PG/ML (247-911)
== END ==
LOC: M PLALAB 09:32
PROVIDERS: ATTEND Family Medicine
DX: I10 Essential (primary) hypertension (principal); E03.9 Hypothyroidism, unspecified; R53.83 Other fatigue

== ENCOUNTER → 2022-05-19 | Outpatient (CLI) | payer OTHER ==
[2022-05-19 10:48] LABS: HEMATOCRIT 40.2 % (36.0-47.0); HEMOGLOBIN 13.7 g/dl (12.0-15.5); MEAN CORPUSCULAR HEMOGLOBIN 31.2 pg (27.0-33.0); MEAN CORPUSCULAR HGB CONC 34.1 g/dl (32.0-36.5); MEAN CORPUSCULAR VOLUME 91.6 fl (80.0-96.0); PLATELET COUNT, AUTOMATED 357 10^3/uL (150-450); RED BLOOD COUNT 4.39 10^6/uL (4.00-5.40); WHITE BLOOD COUNT 4.5 10^3/uL (4.0-10.0)
[2022-05-19 11:10] LABS: HEMOGLOBIN A1c 4.8 % (4.0-6.0)
[2022-05-19 11:20] LABS: MAGNESIUM LEVEL 1.7 MG/DL (1.8-2.4)
[2022-05-19 11:21] LABS: ALBUMIN 3.9 G/DL (3.2-5.2); ALKALINE PHOSPHATASE 81 U/L (46-116); ALT/SGPT 42 U/L (7.0-40); AST/SGOT 50 U/L (<34); BILIRUBIN,TOTAL 0.4 MG/DL (0.3-1.2); BLOOD UREA NITROGEN 5 MG/DL (9-23); CALCIUM LEVEL 9.4 MG/DL (8.5-10.1); CARBON DIOXIDE LEVEL 26 MMOL/L (20-31); CHLORIDE LEVEL 92 MMOL/L (98-107); CHOLESTEROL LEVEL 186 MG/DL (<200); CHOLESTEROL RISK RATIO 2.64 (<5); CREATININE FOR GFR 0.46 MG/DL (0.55-1.30); GLOMERULAR FILTRATION RATE > 60.0 (>51); GLUCOSE, FASTING 81 MG/DL (60-100); HDL CHOLESTEROL 70.2 MG/DL (>40); NON-HDL-C 116 MG/DL; POTASSIUM SERUM 3.8 MMOL/L (3.5-5.1); SODIUM LEVEL 127 MMOL/L (136-145); THYROID STIMULATING HORMONE 0.101 uIU/ML (0.55-4.78); TOTAL IRON BINDING CAPACITY 284 UG/DL (250-425); TOTAL PROTEIN 7.7 G/DL (5.7-8.2); TRIGLYCERIDES LEVEL 249 MG/DL (<150)
[2022-05-19 11:22] LABS: IRON (FE) 124 UG/DL (50-170); PERCENT SATURATION 43.7 % (13.2-45.0); THYROXINE (T4) 11.5 UG/DL (4.5-10.9); VITAMIN B12 LEVEL 352 PG/ML (211-911)
[2022-05-19 12:16] LABS: TOTAL T3 121.1 NG/DL (60.0-181.0)
== END ==
LOC: M PLALAB 08:06
PROVIDERS: ATTEND Family Medicine
DX: I10 Essential (primary) hypertension (principal); R53.83 Other fatigue

== ENCOUNTER → 2022-12-19 | Outpatient (CLI) | payer OTHER ==
[2022-12-19 14:01] LABS: HEMATOCRIT 41.6 % (36.0-47.0); HEMOGLOBIN 13.6 g/dl (12.0-15.5); MEAN CORPUSCULAR HEMOGLOBIN 31.3 pg (27.0-33.0); MEAN CORPUSCULAR HGB CONC 32.7 g/dl (32.0-36.5); MEAN CORPUSCULAR VOLUME 95.6 fl (80.0-96.0); PLATELET COUNT, AUTOMATED 454 10^3/uL (150-450); RED BLOOD COUNT 4.35 10^6/uL (4.00-5.40); WHITE BLOOD COUNT 8.5 10^3/uL (4.0-10.0)
[2022-12-19 14:32] LABS: HEMOGLOBIN A1c 4.8 % (4.0-6.0)
[2022-12-19 14:37] LABS: URIC ACID 4.6 MG/DL (3.1-7.8)
[2022-12-19 14:38] LABS: TOTAL IRON BINDING CAPACITY 283 UG/DL (250-425)
[2022-12-19 14:39] LABS: ALBUMIN 3.7 G/DL (3.2-5.2); ALKALINE PHOSPHATASE 92 U/L (46-116); ALT/SGPT 26 U/L (7.0-40); AST/SGOT 23 U/L (<34); BILIRUBIN,TOTAL 0.4 MG/DL (0.3-1.2); BLOOD UREA NITROGEN 5 MG/DL (9-23); CALCIUM LEVEL 9.4 MG/DL (8.5-10.1); CARBON DIOXIDE LEVEL 28 MMOL/L (20-31); CHLORIDE LEVEL 103 MMOL/L (98-107); CHOLESTEROL LEVEL 190 MG/DL (<200); CHOLESTEROL RISK RATIO 2.98 (<5); CREATININE FOR GFR 0.59 MG/DL (0.55-1.30); GLOMERULAR FILTRATION RATE > 60.0 (>51); GLUCOSE, FASTING 93 MG/DL (60-100); HDL CHOLESTEROL 63.7 MG/DL (>40); IRON (FE) 64 UG/DL (50-170); LDL CHOLESTEROL 88.7 MG/DL (<100); NON-HDL-C 126.3 MG/DL; PERCENT SATURATION 22.6 % (13.2-45.0); POTASSIUM SERUM 3.6 MMOL/L (3.5-5.1); SODIUM LEVEL 141 MMOL/L (136-145); TOTAL PROTEIN 7.7 G/DL (5.7-8.2); TRIGLYCERIDES LEVEL 188 MG/DL (<150)
[2022-12-19 14:40] LABS: THYROID STIMULATING HORMONE 1.433 uIU/ML (0.55-4.78); THYROXINE (T4) 8.7 UG/DL (4.5-10.9); TOTAL T3 108.1 NG/DL (60.0-181.0)
[2022-12-19 14:41] LABS: TOTAL 25(OH) VITAMIN D 47.5 NG/ML (20.0-100.0)
== END ==
LOC: M PLALAB 10:06
PROVIDERS: ATTEND Family Medicine
DX: I10 Essential (primary) hypertension (principal); D64.9 Anemia, unspecified; R53.83 Other fatigue; E03.9 Hypothyroidism, unspecified

== ENCOUNTER → 2024-05-01 | Outpatient (CLI) | payer OTHER ==
[2024-05-01 13:51] LABS: HEMATOCRIT 38.2 % (36.0-47.0); MEAN CORPUSCULAR HEMOGLOBIN 31.5 pg (27.0-33.0); MEAN CORPUSCULAR VOLUME 92.5 fl (80.0-96.0); PLATELET COUNT, AUTOMATED 350 10^3/uL (150-450); RED BLOOD COUNT 4.13 10^6/uL (4.00-5.40); WHITE BLOOD COUNT 5.7 10^3/uL (4.0-10.0)
[2024-05-01 14:14] LABS: THYROID STIMULATING HORMONE 2.009 uIU/ML (0.55-4.78)
[2024-05-01 14:15] LABS: HEMOGLOBIN A1c 4.9 % (4.0-6.0)
[2024-05-01 14:18] LABS: TOTAL 25(OH) VITAMIN D 66.8 NG/ML (20.0-100.0)
[2024-05-01 14:20] LABS: ALBUMIN 4.1 G/DL (3.2-5.2); ALKALINE PHOSPHATASE 68 U/L (35-104); ALT/SGPT 44 U/L (7.0-40); AST/SGOT 47 U/L (<34); BILIRUBIN,TOTAL 0.4 MG/DL (0.3-1.2); BLOOD UREA NITROGEN 8 MG/DL (9-23); CALCIUM LEVEL 9.4 MG/DL (8.5-10.1); CARBON DIOXIDE LEVEL 26 MMOL/L (20-31); CHLORIDE LEVEL 99 MMOL/L (98-107); CHOLESTEROL LEVEL 201 MG/DL (<200); CHOLESTEROL RISK RATIO 2.41 (<5); GLOMERULAR FILTRATION RATE > 60.0 (>51); GLUCOSE, FASTING 85 MG/DL (60-100); HDL CHOLESTEROL 83.1 MG/DL (>40); IRON (FE) 123 UG/DL (50-170); LDL CHOLESTEROL 85.3 MG/DL (<100); NON-HDL-C 117.9 MG/DL; PERCENT SATURATION 38.4 % (13.2-45.0); POTASSIUM SERUM 4.5 MMOL/L (3.5-5.1); SODIUM LEVEL 132 MMOL/L (136-145); TOTAL IRON BINDING CAPACITY 320 UG/DL (250-425); TOTAL PROTEIN 7.9 G/DL (5.7-8.2); TRIGLYCERIDES LEVEL 163 MG/DL (<150)
== END ==
LOC: M PLALAB 11:44
PROVIDERS: ATTEND Family Medicine
DX: D64.9 Anemia, unspecified (principal); E03.9 Hypothyroidism, unspecified; R53.83 Other fatigue